=== PATIENT | male | born 1955 ===

== ENCOUNTER 2018-10-13 11:44 | Day surgery (SDC) | payer BC ==
[~2018-10-13] VITALS: Ht 182.9 cm; Wt 114.1 kg
[2018-10-13] MEDS ORDERED: METO50 PO (12:24)
[2018-10-13] MEDS ORDERED: AMLO10/10 (12:24)
[2018-10-13] MEDS ORDERED: Prilosec Otc20 MG PO (12:25)
--- NOTE | 2018-10-13 12:56 | NUR ---
10/13/18 Cyndy6 Des Yusuf CALL LIGHT WITHIN REACH. FAMILY AT BEDSIDE
== END 2018-10-13 14:41 | disposition home or self-care (01) ==
LOC: ORSCSDS 11:44
PROVIDERS: Internal Medicine Gastroenterology
PROC: 0DBL8ZX Excision of Transverse Colon, Via Natural or Artificial Opening Endoscopic, Diagnostic (ICD-10-PCS; principal; 2018-10-13 13:15)
PROC: 0DBK8ZX Excision of Ascending Colon, Via Natural or Artificial Opening Endoscopic, Diagnostic (ICD-10-PCS; principal; 2018-10-13 13:15)
PROC: 0DBN8ZX Excision of Sigmoid Colon, Via Natural or Artificial Opening Endoscopic, Diagnostic (ICD-10-PCS; principal; 2018-10-13 13:15)
PROC: 0DBP8ZX Excision of Rectum, Via Natural or Artificial Opening Endoscopic, Diagnostic (ICD-10-PCS; principal; 2018-10-13 13:15)
PROC: 0DBM8ZX Excision of Descending Colon, Via Natural or Artificial Opening Endoscopic, Diagnostic (ICD-10-PCS; principal; 2018-10-13 13:15)
DX: Z12.11 Encounter for screening for malignant neoplasm of colon (principal); D12.3 Benign neoplasm of transverse colon; D12.2 Benign neoplasm of ascending colon; D12.4 Benign neoplasm of descending colon; K63.5 Polyp of colon; K62.1 Rectal polyp; K64.8 Other hemorrhoids; I10 Essential (primary) hypertension; Z87.891 Personal history of nicotine dependence; Z79.899 Other long term (current) drug therapy
CPT/HCPCS: 88305; J2704; J7120